=== PATIENT | female | born 1975 | race Caucasian/White ===

== ENCOUNTER 2018-10-11 10:48 | Observation (INO) ==
[2018-10-11] MEDS ORDERED: Ondansetron 4 MG/2 ML VIAL IVP ONE (11:17)
[2018-10-11] MEDS ORDERED: 0.9 % Sodium Chloride 1,000 ML IVC ONE (11:17)
[2018-10-11] MEDS ORDERED: *HR* HYDROmorphone (PF) 1 MG/ML SYRINGE IVP ONE (11:17)
--- NOTE | 2018-10-11 11:20 | Emergency Department Note ---
Disposition Clinical Impression: Incarcerated femoral hernia Disposition: Admitted As Inpatient Condition: Good Referrals: Juancho Dinero MD [Primary Care Provider] - Time of Disposition: 12:55 General Adult HPI - General Chief complaint: ED Abdominal Pain Stated complaint: Hernia Time Seen by Provider: 10/11/18 10:55 Source: patient, family Mode of arrival: ambulatory Limitations: no limitations Nursing Notes Reviewed: Yes Vital Signs Reviewed: Yes - History of Present Illness HPI Narrative: 43-year-old female patient with a history of fatty liver as well as several hernias inclusive of a hiatal hernia and umbilical hernia presenting to emergency department with a complaint of a one-week history of a left inguinal hernia. She states that it was initially the size of an almond. Is been progressively getting worse. She reports yesterday around 5:30 AM she had significant pain to the area. She is only been able to pass a small amount of liquid stool since. She denies any fevers or chills. She reports that she has been in a significant amount of pain since 5:30 yesterday but she was trying to make it to her primary care doctor today. She was told that they were close today so she came to the emergency department. She is never had an incarcerated hernia before. She does have a history of a tubal ligation. - Related Data Home Medications Medication Instructions Recorded Confirmed Esomeprazole Magnesium [Nexium] 40 mg PO DAILY PRN 02/12/18 02/12/18 Fenofibrate 40 mg PO DAILY 02/12/18 02/12/18 Ibuprofen [Advil] 200 mg PO Q6H PRN 02/12/18 02/12/18 Previous Rx's Medication Instructions Recorded Acetaminophen [Tylenol] 1,000 mg PO Q6HR PRN #90 tablet 02/12/18 Allergies Allergy/AdvReac Type Severity Reaction Status Date / Time Amoxicillin Allergy Rash Verified 10/11/18 11:16 fluticasone [From Flonase] Allergy Swelling Verified 10/11/18 11:16 of Lip/Tongue/Throat hydromorphone [From Dilaudid] AdvReac Gastrointestinal Verified 10/11/18 11:16 Upset All systems ED: reviewed and negative except as stated. Review of Systems: As Per HPI Constitutional: Denies: fever, chills Cardiovascular: Denies: chest pain, syncope Respiratory: Denies: cough, dyspnea Gastrointestinal: Reports: nausea, other (Has not passed gas today. Had a small liquid stool yesterday. Reporting left inguinal pain. Started a week ago got significantly worse 5:30 AM yesterday morning.). Denies: abdominal pain, vomiting Genitourinary: Denies: urgency, dysuria, frequency Integumentary: Denies: rash Past Medical History - Past Medical History Attestation: Yes The following information was validated with the patient. Source: patient Medical history: Reports: hyperlipidemia, other Surgical history: Reports: breast surgery, , cholecystectomy, other Psychiatric history: Reports: no psych history - Social History Smoking Status: Never smoker Smokeless Tobacco Status: No Alcohol use: Reports: none Drug use: Reports: none Physical Exam - General Limitations: no limitations General appearance: alert, in distress (Appears in pain.) - Head Head exam: atraumatic, normocephalic, normal inspection - Eye Eye exam: Present: normal appearance, PERRL, EOMI - ENT ENT exam: normal exam, normal oropharynx, mucous membranes moist - Neck Neck exam: Present: normal inspection, full ROM, trachea midline - Chest Chest inspection: Present: normal inspection, symmetric chest wall rise - Respiratory Respiratory exam: Present: normal lung sounds bilaterally. Absent: respiratory distress, accessory muscle use - Cardiovascular Cardiovascular exam: Present: regular rate, normal rhythm, normal heart sounds - Abdominal Exam Abdominal exam: Present: soft, hernia (Concern for a left inguinal hernia. Patient has a hard mass to the left inguinal area. Exquisitely tender to light palpation.). Absent: organomegaly, Winston's sign, tenderness at McBurney's Point - Extremities Exam Extremities exam: Present: normal inspection, full ROM, normal capillary refill. Absent: tenderness, pedal edema - Neurological Exam Neurological exam: Present: alert, oriented X3 - Psychiatric Psychiatric exam: Present: normal affect, normal mood - Skin Skin exam: Present: warm, dry, intact, normal color Course Course Narrative: Female patient with a history of several hernias presenting with pain to her left inguinal area. Started a week ago. Exquisitely worse yesterday morning around 5:30. Has had one episode of liquid stool yesterday. Has not passed gas today. No stools today. Reports nausea associated with the pain. Has never had an inguinal hernia before. She denies any fevers or chills. Patient does have pain to palpation of her left inguinal area. We did get a ultrasound at bedside to evaluate the area. Hypoechoic structure. No blood flow to this area. There is some mild swelling to the left inguinal area that is hard to p alpation. It is nonpulsatile. We did provide ice to this area and have the patient in the supine position. She denies any trouble urinating. She denies any vaginal discharge. She denies the chance of being she states she had tubal 8 years ago. We will get basic labs and a CT of patient's abdomen. We did discuss the patient with Dr. armstrong who is on-call for surgery for possible incarcerated hernia. - Reevaluation(s) Reevaluation #1: I was unable to reduce the hernia. Patient does have exquisite tenderness. We did provide patient with pain medication and anti-emetics. Dr. armstrong will be admitting the patient to his service and has added her on for surgery today. - Consultations Consultation #1: Dr. armstrong came down to bedside and also could not reduce the patient's femoral hernia. He will be admitting the patient and taking her to surgery today. Patient is consented. Time: 12:53 Consultation #2: I contacted [facility] to discuss the patient and the read of the CT. Our concern was that this was likely a femoral hernia. However in the read there is a concern for possible hemorrhagic foci to this area. On bedside u ltrasound did not show blood flow however he is requesting that a formal ultrasound be completed to rule out active hemorrhage versus lymphadenopathy. He does believe that the surgeon should be involved in the case at this time. We did discuss that there is a surgeon on at this time for this. We will obtain a formal ultrasound. We have also repeat Dr. armstrong and are attempting to contact him to discuss the read. Time: 13:42 Consultation #3: I discussed the CT findings with Dr. armstrong. He states that he visualized the CT as well. He does not wish to have the ultrasound performed at this time. We will cancel that. Time: 14:15 Vital Signs Temperature 98.0 F 10/11/18 10:51 Pulse Rate 80 10/11/18 10:51 Respiratory Rate 18 10/11/18 10:51 Blood Pressure 134/85 10/11/18 10:51 O2 Sat by Pulse Oximetry 98 10/11/18 10:51 Temperature 98.0 F 10/11/18 11:40 Pulse Rate 67 10/11/18 13:24 Respiratory Rate 20 10/11/18 13:24 Blood Pressure 120/90 10/11/18 13:24 O2 Sat by Pulse Oximetry 96 10/11/18 13:24 Oxygen Delivery Oxygen Delivery Room Air Medical Decision Making - Medical Records Medical records reviewed: Yes I reviewed the patient's medical records. - Lab Data Lab results reviewed: Yes I reviewed the patient's lab results. Result diagrams: 10/11/18 11:30 10/11/18 11:30 Lab Results 10/11/18 10/11/18 10/11/18 Range/Units 11:30 11:30 11:30 WBC 6.1 (4.3-11.1) K/mcL RBC 4.73 (3.82-4.97) M/mcL Hgb 14.2 (11.5-15.4) g/dL Hct 42.1 (35.3-44.9) % MCV 89.0 (83.0-100.0) fL MCH 30.0 (28.0-33.3) pg MCHC 33.7 (31.6-35.5) g/dL RDW 11.6 (11.5-14.5) % Plt Count 252 (140-400) K/mcL MPV 8.7 L (9.4-12.4) fL Immature Gran % 0.3 (0-4) % Seg Neutrophils % 62.7 % Lymphocytes % 27.5 % Monocytes % 7.7 % Eosinophils % 1.3 % Basophils % 0.5 % Neutrophils # 3.8 (1.6-8.9) K/mcL Lymphocytes # 1.7 (0.6-4.6) K/mcL Monocytes # 0.5 (0.0-1.3) K/mcL Eosinophils # 0.1 (0.0-0.6) K/mcL Basophils # 0.0 (0.0-0.2) K/mcL PT 10.8 (9.4-12.1) Seconds INR 1.0 Sodium 137 (136-145) mEq/L Potassium 3.7 (3.5-5.1) mEq/L Chloride 103 (98-107) mEq/L Carbon Dioxide 26 (23-29) mEq/L BUN 12 (6-20) mg/dL Creatinine 0.59 L (0.60-1.20) mg/dL Est GFR ( Amer) > 60 (> 60) Est GFR (Non-Af Amer) > 60 (> 60) BUN/Creatinine Ratio 20 (6-26) Glucose 107 H (70-105) mg/dL Calculated Osmolality 284 (280-300) Lactic Acid (0.5-2.2) mmol/L Calcium 9.8 (8.6-10.3) mg/dL Total Bilirubin 0.5 (0.3-1.0) mg/dL Direct Bilirubin 0.1 (0.0-0.2) mg/dL Indirect Bilirubin 0.4 (0.0-1.2) mg/dL AST 50 H (13-39) Units/L ALT 89 H (7-52) Units/L Alkaline Phosphatase 84 (34-104) Units/L Serum Total Protein 7.1 (6.4-8.9) g/dL Albumin 4.6 (3.5-5.7) g/dL Globulin 2.5 (2.4-3.5) g/dL Albumin/Globulin Ratio 1.8 (1.1-2.2) Lipase 37 (11-82) Units/L Urine Color (Yellow) Urine Clarity (Clear) Urine pH (5.0-8.0) pH Units Ur Specific [place] (1.010-1.025) Urine Protein (Neg-Trace) mg/dL Urine Glucose (UA) (Normal) mg/dL Urine Ketones (Negative) mg/dL Urine Blood (Negative) Urine Nitrite (Negative) Urine Bilirubin (Negative) Urine Urobilinogen (Normal) mg/dL Ur Leukocyte Esterase (Negative) Urine Microscopic RBC (0-3) per hpf Urine Microscopic WBC (0-3) per hpf Ur Squamous Epith Cells (None-Few) per lpf Urine Bacteria (None-Few) per hpf Hyaline Casts (None-Few) per lpf Ur Culture Indicated? (NO) 10/11/18 10/11/18 Range/Units 11:30 13:35 WBC (4.3-11.1) K/mcL RBC (3.82-4.97) M/mcL Hgb (11.5-15.4) g/dL Hct (35.3-44.9) % MCV (83.0-100.0) fL MCH (28.0-33.3) pg MCHC (31.6-35.5) g/dL RDW (11.5-14.5) % Plt Count (140-400) K/mcL MPV (9.4-12.4) fL Immature Gran % (0-4) % Seg Neutrophils % % Lymphocytes % % Monocytes % % Eosinophils % % Basophils % % Neutrophils # (1.6-8.9) K/mcL Lymphocytes # (0.6-4.6) K/mcL Monocytes # (0.0-1.3) K/mcL Eosinophils # (0.0-0.6) K/mcL Basophils # (0.0-0.2) K/mcL PT (9.4-12.1) Seconds INR Sodium (136-145) mEq/L Potassium (3.5-5.1) mEq/L Chloride (98-107) mEq/L Carbon Dioxide (23-29) mEq/L BUN (6-20) mg/dL Creatinine (0.60-1.20) mg/dL Est GFR ( Amer) (> 60) Est GFR (Non-Af Amer) (> 60) BUN/Creatinine Ratio (6-26) Glucose (70-105) mg/dL Calculated Osmolality (280-300) Lactic Acid 1.3 (0.5-2.2) mmol/L Calcium (8.6-10.3) mg/dL Total Bilirubin (0.3-1.0) mg/dL Direct Bilirubin (0.0-0.2) mg/dL Indirect Bilirubin (0.0-1.2) mg/dL AST (13-39) Units/L ALT (7-52) Units/L Alkaline Phosphatase (34-104) Units/L Serum Total Protein (6.4-8.9) g/dL Albumin (3.5-5.7) g/dL Globulin (2.4-3.5) g/dL Albumin/Globulin Ratio (1.1-2.2) Lipase (11-82) Units/L Urine Color Yellow (Yellow) Urine Clarity Clear (Clear) Urine pH 6.0 (5.0-8.0) pH Units Ur Specific [place] > 1.030 H (1.010-1.025) Urine Protein Negative (Neg-Trace) mg/dL Urine Glucose (UA) Normal (Normal) mg/dL Urine Ketones Negative (Negative) mg/dL Urine Blood Small H (Negative) Urine Nitrite Negative (Negative) Urine Bilirubin Negative (Negative) Urine Urobilinogen Normal (Normal) mg/dL Ur Leukocyte Esterase Negative (Negative) Urine Microscopic RBC 3-5 H (0-3) per hpf Urine Microscopic WBC 0-3 (0-3) per hpf Ur Squamous Epith Cells Many H (None-Few) per lpf Urine Bacteria None Seen (None-Few) per hpf Hyaline Casts None Seen (None-Few) per lpf Ur Culture Indicated? NO (NO) - Radiology Data Radiology results reviewed: Yes I reviewed the patient's radiology results. Abdomen/Pelvis CT 10/11/18 11:25 IMPRESSION: 1. Left inguinal hyperdense mass which may represent left inguinal hemorrhage. Alternatively this may represent an area of adenopathy. This does not have the appearance of inguinal hernia. 2. Calcified uterine fibroids. 3. Incidental right adnexal cyst measures 2.6 cm. 4. Fatty infiltration of the liver. Findings discussed with Sara Fu 1 10/11/2018 at 1:30 p.m. D/ / 10/11/2018 13:45:59 Sherry Chauhan MD / amber Interpreting Provider: Sherry Chauhan MD
[2018-10-11] MEDS ORDERED: Isovue-370 500 ML BOTTLE IVP ONE (11:25)
[2018-10-11 11:56] LABS: Basophils % 0.5 %; Eosinophils # 0.1 K/mcL (0.0-0.6); Eosinophils % 1.3 %; Hematocrit 42.1 % (35.3-44.9); Hemoglobin 14.2 g/dL (11.5-15.4); Immature Granulocytes % 0.3 % (0-4); Lymphocytes # 1.7 K/mcL (0.6-4.6); Lymphocytes % 27.5 %; Mean Corpuscular HGB Conc 33.7 g/dL (31.6-35.5); Mean Platelet Volume 8.7 fL (9.4-12.4); Monocytes # 0.5 K/mcL (0.0-1.3); Monocytes % 7.7 %; Neutrophils # 3.8 K/mcL (1.6-8.9); Platelet Count 252 K/mcL (140-400); Red Blood Count 4.73 M/mcL (3.82-4.97); Red Cell Distribution Width 11.6 % (11.5-14.5); Segmented Neutrophils % 62.7 %
[2018-10-11 12:07] LABS: Prothrombin Time 10.8 Seconds (9.4-12.1)
[2018-10-11 12:10] LABS: Alanine Aminotransferase 89 Units/L (7-52); Albumin 4.6 g/dL (3.5-5.7); Albumin/Globulin Ratio 1.8 (1.1-2.2); Alkaline Phosphatase 84 Units/L (34-104); Aspartate Amino Transferase 50 Units/L (13-39); BUN/Creatinine Ratio 20 (6-26); Bilirubin,Direct 0.1 mg/dL (0.0-0.2); Bilirubin,Indirect 0.4 mg/dL (0.0-1.2); Bilirubin,Total 0.5 mg/dL (0.3-1.0); Blood Urea Nitrogen 12 mg/dL (6-20); Calcium 9.8 mg/dL (8.6-10.3); Carbon Dioxide 26 mEq/L (23-29); Chloride 103 mEq/L (98-107); Globulin 2.5 g/dL (2.4-3.5); Glucose 107 mg/dL (70-105); Lipase 37 Units/L (11-82); Osmolality,Calculated 284 (280-300); Potassium 3.7 mEq/L (3.5-5.1); Sodium 137 mEq/L (136-145); Total Protein 7.1 g/dL (6.4-8.9); eGFR For Non-African Americans > 60 (> 60)
[2018-10-11] MEDS ORDERED: *HR* FentaNYL (PF) 100 MCG/2 ML VIAL IVP ONE (12:40)
--- NOTE | 2018-10-11 12:57 | Emergency Department Note ---
Disposition Clinical Impression: Incarcerated femoral hernia Disposition: Admitted As Inpatient Forms: ED Satisfaction Letter, Work/School Release Abdominal Pain HPI - General Chief Complaint: ED Abdominal Pain Stated Complaint: Hernia-left inguinal Time Seen by Provider: 10/11/18 10:55 Source: patient, family Mode of arrival: ambulatory - History of Present Illness Pain Scale: 7 - Related Data Home Medications Medication Instructions Recorded Confirmed Esomeprazole Magnesium [Nexium] 40 mg PO DAILY PRN 02/12/18 02/12/18 Fenofibrate 40 mg PO DAILY 02/12/18 02/12/18 Ibuprofen [Advil] 200 mg PO Q6H PRN 02/12/18 02/12/18 Previous Rx's Medication Instructions Recorded Acetaminophen [Tylenol] 1,000 mg PO Q6HR PRN #90 tablet 02/12/18 Allergies Allergy/AdvReac Type Severity Reaction Status Date / Time Amoxicillin Allergy Rash Verified 10/11/18 11:16 fluticasone [From Flonase] Allergy Swelling Verified 10/11/18 11:16 of Lip/Tongue/Throat hydromorphone [From Dilaudid] AdvReac Gastrointestinal Verified 10/11/18 11:16 Upset Constitutional: Denies: fever, chills Cardiovascular: Denies: chest pain, syncope Respiratory: Denies: cough, dyspnea Gastrointestinal: Reports: nausea, other (Has not passed gas today. Had a small liquid stool yesterday. Reporting left inguinal pain. Started a week ago got significantly worse 5:30 AM yesterday morning.). Denies: abdominal pain, vomiting Genitourinary: Denies: urgency, dysuria, frequency Integumentary: Denies: rash Abdominal Pain PMH - Past Medical History Medical history: Reports: hyperlipidemia, other Female Surgical History: Reports: Tonsillectomy Psychiatric history: Reports: no psych history - Social History Smoking status: Never smoker Alcohol use: Reports: none Drug use: Reports: none Physical Exam - General Limitations: no limitations General appearance: alert, in distress (Appears in pain.) Course Vital Signs Temperature 98.0 F 10/11/18 10:51 Pulse Rate 80 10/11/18 10:51 Respiratory Rate 18 10/11/18 10:51 Blood Pressure 134/85 10/11/18 10:51 O2 Sat by Pulse Oximetry 98 10/11/18 10:51 Temperature 98.0 F 10/11/18 11:40 Pulse Rate 71 10/11/18 11:40 Respiratory Rate 20 10/11/18 11:40 Blood Pressure 129/92 10/11/18 11:40 O2 Sat by Pulse Oximetry 96 10/11/18 11:40 Oxygen Delivery Oxygen Delivery Room Air Abdominal Pain - Lab Data Result diagrams: 10/11/18 11:30 10/11/18 11:30 Lab Results 10/11/18 10/11/18 10/11/18 Range/Units 11:30 11:30 11:30 WBC 6.1 (4.3-11.1) K/mcL RBC 4.73 (3.82-4.97) M/mcL Hgb 14.2 (11.5-15.4) g/dL Hct 42.1 (35.3-44.9) % MCV 89.0 (83.0-100.0) fL MCH 30.0 (28.0-33.3) pg MCHC 33.7 (31.6-35.5) g/dL RDW 11.6 (11.5-14.5) % Plt Count 252 (140-400) K/mcL MPV 8.7 L (9.4-12.4) fL Immature Gran % 0.3 (0-4) % Seg Neutrophils % 62.7 % Lymphocytes % 27.5 % Monocytes % 7.7 % Eosinophils % 1.3 % Basophils % 0.5 % Neutrophils # 3.8 (1.6-8.9) K/mcL Lymphocytes # 1.7 (0.6-4.6) K/mcL Monocytes # 0.5 (0.0-1.3) K/mcL Eosinophils # 0.1 (0.0-0.6) K/mcL Basophils # 0.0 (0.0-0.2) K/mcL PT 10.8 (9.4-12.1) Seconds INR 1.0 Sodium 137 (136-145) mEq/L Potassium 3.7 (3.5-5.1) mEq/L Chloride 103 (98-107) mEq/L Carbon Dioxide 26 (23-29) mEq/L BUN 12 (6-20) mg/dL Creatinine 0.59 L (0.60-1.20) mg/dL Est GFR ( Amer) > 60 (> 60) Est GFR (Non-Af Amer) > 60 (> 60) BUN/Creatinine Ratio 20 (6-26) Glucose 107 H (70-105) mg/dL Calculated Osmolality 284 (280-300) Lactic Acid (0.5-2.2) mmol/L Calcium 9.8 (8.6-10.3) mg/dL Total Bilirubin 0.5 (0.3-1.0) mg/dL Direct Bilirubin 0.1 (0.0-0.2) mg/dL Indirect Bilirubin 0.4 (0.0-1.2) mg/dL AST 50 H (13-39) Units/L ALT 89 H (7-52) Units/L Alkaline Phosphatase 84 (34-104) Units/L Serum Total Protein 7.1 (6.4-8.9) g/dL Albumin 4.6 (3.5-5.7) g/dL Globulin 2.5 (2.4-3.5) g/dL Albumin/Globulin Ratio 1.8 (1.1-2.2) Lipase 37 (11-82) Units/L 10/11/18 Range/Units 11:30 WBC (4.3-11.1) K/mcL RBC (3.82-4.97) M/mcL Hgb (11.5-15.4) g/dL Hct (35.3-44.9) % MCV (83.0-100.0) fL MCH (28.0-33.3) pg MCHC (31.6-35.5) g/dL RDW (11.5-14.5) % Plt Count (140-400) K/mcL MPV (9.4-12.4) fL Immature Gran % (0-4) % Seg Neutrophils % % Lymphocytes % % Monocytes % % Eosinophils % % Basophils % % Neutrophils # (1.6-8.9) K/mcL Lymphocytes # (0.6-4.6) K/mcL Monocytes # (0.0-1.3) K/mcL Eosinophils # (0.0-0.6) K/mcL Basophils # (0.0-0.2) K/mcL PT (9.4-12.1) Seconds INR Sodium (136-145) mEq/L Potassium (3.5-5.1) mEq/L Chloride (98-107) mEq/L Carbon Dioxide (23-29) mEq/L BUN (6-20) mg/dL Creatinine (0.60-1.20) mg/dL Est GFR ( Amer) (> 60) Est GFR (Non-Af Amer) (> 60) BUN/Creatinine Ratio (6-26) Glucose (70-105) mg/dL Calculated Osmolality (280-300) Lactic Acid 1.3 (0.5-2.2) mmol/L Calcium (8.6-10.3) mg/dL Total Bilirubin (0.3-1.0) mg/dL Direct Bilirubin (0.0-0.2) mg/dL Indirect Bilirubin (0.0-1.2) mg/dL AST (13-39) Units/L ALT (7-52) Units/L Alkaline Phosphatase (34-104) Units/L Serum Total Protein (6.4-8.9) g/dL Albumin (3.5-5.7) g/dL Globulin (2.4-3.5) g/dL Albumin/Globulin Ratio (1.1-2.2) Lipase (11-82) Units/L Critical Care Time Critical Care Time: No Attestation Statement - Attestation Attestation: I examined this patient and my medical decision-making was reviewed with the Resident Physician. I agree with the documented findings, disposition and treatment plan as described except to the extent set forth below. 43-year-old female in presented to the emergency room for left femoral pain. She states this started about a week ago when she had some fullness in this area that she states was the size of an almond. The pain and swelling gradually got worse up until 5:30 in the AM today. She was concerned about a possible hernia. She called her primary physician is unable to get in. She on exam has extreme tenderness to the left femoral area. Concerns for possible incarcerated femoral hernia. She has good pulses in the femoral region. There is no significant redness but there is some mild erythema to the skin. We did place a bedside ultrasound on this region. Were concerns for possible lymphadenitis versus this hernia. Her labs are stable. She is afebrile at this time. She has had no vomiting today. She did have a bowel mov ement 2 days ago. We consulted with general surgery, Dr. armstrong. He came to the emergency room to evaluate the patient. He did a signing consent form to take her to the operating room today. Pain control with fentanyl at this time. She did not prefer the Dilaudid as it caused some abdominal dis comfort. We did order a CT scan. Those results are pending at this time.
[2018-10-11 13:47] LABS: Bilirubin,Urine Negative (Negative); Blood,Urine Small (Negative); Clarity,Urine Clear (Clear); Color,Urine Yellow (Yellow); Glucose,Urine (UA) Normal (Normal); Ketones,Urine Negative (Negative); Leukocyte Esterase,Urine Negative (Negative); Nitrite,Urine Negative (Negative); Protein,Urine Negative (Neg-Trace); Specific Gravity,Urine > 1.030 (1.010-1.025); Urobilinogen,Urine Normal (Normal)
[2018-10-11 13:49] LABS: Bacteria,Urine None Seen per hpf (None-Few); Hyaline Casts,Urine None Seen per lpf (None-Few); Squamous Epithelial Cell,Urine Many per lpf (None-Few); WBC,Urine 0-3 per hpf (0-3)
[2018-10-11] MEDS ORDERED: *HR* OxyCODONE Immed Rel 5 MG TABLET PO PRN ×2 (13:49→20:27)
[2018-10-11] MEDS ORDERED: Ringers Solution, Lactated 1,000 ML IVC SCH ×2 (14:00→20:27)
--- NOTE | 2018-10-11 14:04 | General Surg History&Physical ---
Date of Encounter: 10/11/18 Time of Encounter: 13:52 History of Present Illness Chief complaint: Painful mass left groin HPI: Ms. Issa is a 43 year old female for surgical services for further evaluation of a painful mass left groin. Patient indicates the mass has been present for the past 7 days but in the last 24-48 hours has become larger and significantly more painful. No fevers, chills, nausea, or vomiting. No bowel movements in the last 48 hours. Findings are consistent with an incarcerated left femoral hernia. My presentation to the emergency department, the patient was lying in her hospital bed in some distress related to the painful mass left groin. The mass was manipulated in an effort to reduce the incarcerated hernia. This was unsuccessful. The patient will require surgical intervention and repair with mesh. Past medical history: Hyperlipidemia Surgical history: Tonsillectomy, 3; uterine suspension with mesh; saphenous vein stripping/phlebectomy Allergies: Amoxicillin and Flonase Dilaudid causes abdominal pain Medications: Tylenol and Zantac Social history: G3, P3; lives at home with her and children; she has never smoked, she does not consume alcohol or use illicit drugs. The patient is employed in occupational therapy. Family history: Noncontributory Physical examination: Age-appropriate, woman in some distress related to a painful mass left groin. She is 1.73 m tall, 76.748 kg, BMI 25.7 The patient is afebrile, 98.0; pulse 67-71, respirations 20, blood pressure 129/92- 120/90. SPO2 96% Skin: Warm without obvious jaundice Lungs: Clear bilaterally, no obvious wheezes or rales. No abdominal pain with deep inspiration Cardiac: Regular rate, no appreciable murmurs Abdomen: Soft, nontender. No peritoneal signs. Hypoactive bowel sounds. No discernible intra-abdominal masses. Painful mass left femoral region consistent with a incarcerated femoral hernia. Not reducible. No overlying skin changes. Extremities: No obvious clubbing, cyanosis, or edema. Labs: WBC 6.1, hemoglobin 14.2, hematocrit 42.1. Platelet count 252,000; differential within normal limits Sodium 137, potassium 3.7, chloride 103, bicarbonate 26, BUN 12, creatinine 0.59 CT abdomen/pelvis - diffuse hepatic fatty infiltration; uterus containing fibroids/degenerative fibroid measuring 2.7 cm as described; Minimal fat-containing periumbilical hernia; 4 x 3 cm hyperdensity in the region of the left groin consistent with the painful femoral mass identified On physical examination. Impression: 43-year-old female referred to surgical services for further evaluation and treatment of a painful mass left groin. Clinical exam consistent with an incarcerated femoral hernia. Plan: Left femoral exploration, repair of incarcerated femoral hernia with mesh. This is been discussed in detail with the patient. The use of mesh was also discussed. Risks include hemorrhage, infection, recurrent hernia Injury to adjacent structures including bowel and/or bladder. The use of mesh may result in chronic pain as well as central risk for erosion into Adjacent structures. The patient and her have expressed understanding. Surgical consent has been obtained. Past Med Surg Social Fam HX - Past Medical History Medical history: hyperlipidemia, other Additional medical history: hiatal hernia. umbilical hernia. left inguinal hernia Psychiatric history: no psych history - Past Surgical History Surgical History: breast surgery, , cholecystectomy, other Additional surgical history: fibroids. left knee x2 - Social History Smoking Status: Never smoker Smokeless Tobacco Status: No Alcohol use: none Drug use: none Medications and Allergies Acetaminophen [Tylenol] 1,000 mg PO Q6HR PRN #90 tablet 02/12/18 [Rx] Esomeprazole Magnesium [Nexium] 40 mg PO DAILY PRN 02/12/18 [History] Fenofibrate 40 mg PO DAILY 02/12/18 [History] Ibuprofen [Advil] 200 mg PO Q6H PRN 02/12/18 [History] 3 Allergy/AdvReac Type Severity Reaction Status Date / Time Amoxicillin Allergy Rash Verified 10/11/18 11:16 fluticasone [From Flonase] Allergy Swelling Verified 10/11/18 11:16 of Lip/Tongue/Throat hydromorphone [From Dilaudid] AdvReac Gastrointestinal Verified 10/11/18 11:16 Upset Review of Systems All systems PM: The remainder of the systems were reviewed and are negative General Surgery Exam Initial Vital Signs Temp Pulse Resp BP Pulse Ox 98.0 F 80 18 134/85 98 10/11/18 10:51 10/11/18 10:51 10/11/18 10:51 10/11/18 10:51 10/11/18 10:51 Results - Labs 10/11/18 11:30 10/11/18 11:30 Abnormal lab results MPV 8.7 fL (9.4-12.4) L 10/11/18 11:30 Creatinine 0.59 mg/dL (0.60-1.20) L 10/11/18 11:30 Glucose 107 mg/dL (70-105) H 10/11/18 11:30 AST 50 Units/L (13-39) H 10/11/18 11:30 ALT 89 Units/L (7-52) H 10/11/18 11:30 Ur Specific Bulan > 1.030 (1.010-1.025) H 10/11/18 13:35 Urine Blood Small (Negative) H 10/11/18 13:35 Urine Microscopic RBC 3-5 per hpf (0-3) H 10/11/18 13:35 Ur Squamous Epith Cells Many per lpf (None-Few) H 10/11/18 13:35 Diabetes panel 10/11/18 Range/Units 11:30 Sodium 137 (136-145) mEq/L Potassium 3.7 (3.5-5.1) mEq/L Chloride 103 (98-107) mEq/L Carbon Dioxide 26 (23-29) mEq/L BUN 12 (6-20) mg/dL Creatinine 0.59 L (0.60-1.20) mg/dL Glucose 107 H (70-105) mg/dL Calcium 9.8 (8.6-10.3) mg/dL AST 50 H (13-39) Units/L ALT 89 H (7-52) Units/L Alkaline Phosphatase 84 (34-104) Units/L Albumin 4.6 (3.5-5.7) g/dL Calcium panel 10/11/18 Range/Units 11:30 Calcium 9.8 (8.6-10.3) mg/dL Albumin 4.6 (3.5-5.7) g/dL Pituitary panel 10/11/18 Range/Units 11:30 Sodium 137 (136-145) mEq/L Potassium 3.7 (3.5-5.1) mEq/L Chloride 103 (98-107) mEq/L Carbon Dioxide 26 (23-29) mEq/L BUN 12 (6-20) mg/dL Creatinine 0.59 L (0.60-1.20) mg/dL Glucose 107 H (70-105) mg/dL Calcium 9.8 (8.6-10.3) mg/dL Adrenal panel 10/11/18 Range/Units 11:30 Sodium 137 (136-145) mEq/L Potassium 3.7 (3.5-5.1) mEq/L Chloride 103 (98-107) mEq/L Carbon Dioxide 26 (23-29) mEq/L BUN 12 (6-20) mg/dL Creatinine 0.59 L (0.60-1.20) mg/dL Glucose 107 H (70-105) mg/dL Calcium 9.8 (8.6-10.3) mg/dL Total Bilirubin 0.5 (0.3-1.0) mg/dL AST 50 H (13-39) Units/L ALT 89 H (7-52) Units/L Alkaline Phosphatase 84 (34-104) Units/L Albumin 4.6 (3.5-5.7) g/dL All other labs normal.
--- NOTE | 2018-10-11 18:09 | Anesthesia Evaluation PreOp ---
Date of Encounter: 10/11/18 Time of Encounter: 18:03 - Past History Planned Operation: L-incarcerated herniar repair w/mesh Cardiac History: Hyperlipidemia Pulmonary History: Denies Any Significant HX ADOLESCENT SPECIALIST History: Denies Any Significant HX Other Medical History: Hepatic (newly dx Fatty Liver of unknown etiology) Anesthesia History: No Prior Anesthetic Complications, Past Anesthesia (T&A, C- section x 3, Uterine suspension w/mesh, vein stripping) Alcohol Use: none Drug use: none Medications and Allergies Acetaminophen [Tylenol] 1,000 mg PO Q6HR PRN #90 tablet 02/12/18 [Rx] Esomeprazole Magnesium [Nexium] 40 mg PO DAILY PRN 02/12/18 [History] Fenofibrate 40 mg PO DAILY 02/12/18 [History] Ibuprofen [Advil] 200 mg PO Q6H PRN 02/12/18 [History] Allergy/AdvReac Type Severity Reaction Status Date / Time Amoxicillin Allergy Rash Verified 10/11/18 11:16 fluticasone [From Flonase] Allergy Swelling Verified 10/11/18 11:16 of Lip/Tongue/Throat hydromorphone [From Dilaudid] AdvReac Gastrointestinal Verified 10/11/18 11:16 Upset - Meds/Allergy Pre-op Review Medications Reviewed: Yes Allergies Reviewed: Yes Beta Blockers on Current Med List: No Anesthesia Results - Labs 10/11/18 11:30 10/11/18 11:30 Laboratory Results Impressions Abdomen/Pelvis CT 10/11/18 11:25 IMPRESSION: 1. Left inguinal hyperdense mass which may represent left inguinal hemorrhage. Alternatively this may represent an area of adenopathy. This does not have the appearance of inguinal hernia. 2. Calcified uterine fibroids. 3. Incidental right adnexal cyst measures 2.6 cm. 4. Fatty infiltration of the liver. Findings discussed with Sara Fu 1 10/11/2018 at 1:30 p.m. D/ / 10/11/2018 13:45:59 Sherry Chauhan MD / [email or web address] Interpreting Provider: Sherry Chauhan MD - Imaging EKG: report reviewed (79bpm - Interpretive Statements SINUS RHYTHM WITH SINUS ARRHYTHMIA Electronically Signed On 01-28-2018 13:36:21 EDT by Rudolph Oakley MD) Anesthesia Exam Vital Signs Temp Pulse Resp BP Pulse Ox 10/11/18 14:27 98.3 F 61 16 126/82 97 10/11/18 13:24 67 20 120/90 96 10/11/18 11:40 98.0 F 71 20 129/92 96 10/11/18 11:38 71 20 129/92 96 10/11/18 11:21 97 10/11/18 10:51 98.0 F 80 18 134/85 98 Intake and Output 10/11/18 10/11/18 10/11/18 07:59 15:59 23:59 Intake Total 1000 / 1000 Balance 1000 / 1000 Intake: IV Fluids 1000 / 1000 0.9 % Sodium Chloride 1,000 ML 1000 / 1000 @ 999 mls/hr IVC .Q1H1M ONE Rx# :[id number] Other: Meal NPO DINNER Stool Characteristics Normal for Patient Stool Color Brown Weight 76.748 kg Patient Weight 10/11/18 23:59 Weight 76.748 kg Height: 5'8" Weight: 169# BMI = 26 NPO (# of Hours): 0800 - HEENT Pupil (Motor): Pupils equal, EOMI Mallampati: II Teeth: Normal Oral Opening: Greater than 3 - ADOLESCENT SPECIALIST LOC: Confused ADOLESCENT SPECIALIST Motor: Normal RUE, Normal LUE, Normal RLE, Normal LLE, Normal Face ADOLESCENT SPECIALIST Sensory: Normal: RUE, LUE, RLE, LLE, Face - Cardiac Rhythm: Regular Murmur: None - Pulmonary Breath Sounds: bilateral Clear Respiratory Effort: Symmetrical Anesthesia Assess/Plan ASA Score: 2, E Level of consciousness: Cooperative, Oriented, Tranquil Anesthetic Plan: General Monitoring Plan: Standard Monitors Recovery Plan: PACU Anes Supervising Prov Stmt: Pt seen/evaluated, R&B discussed, questions answered and consent obtained. Jenna Russell MD
[2018-10-11] MEDS ORDERED: *HR* Midazolam HCl 2 MG/2 ML VIAL ONE (18:11)
[2018-10-11] MEDS ORDERED: *HR* Propofol 200 MG/20 ML VIAL IVP ONE (18:11)
[2018-10-11] MEDS ORDERED: *HR* FentaNYL (PF) 100 MCG/2 ML VIAL ONE (18:11)
[2018-10-11] MEDS ORDERED: Lidocaine -MPF 4% 5 ML AMPUL ONE (18:13)
[2018-10-11] MEDS ORDERED: Lidocaine -MPF 2% 2 ML VIAL ONE (18:13)
[2018-10-11] MEDS ORDERED: *HR* Rocuronium Bromide 50 MG/5 ML VIAL ONE (18:13)
[2018-10-11] MEDS ORDERED: KETAMINE HCL 50 MG/ML SYRINGE IV ONE (18:20)
[2018-10-11] MEDS ORDERED: Acetaminophen IV 1,000 MG/100 ML INFUS..BTL ONE (18:20)
[2018-10-11] MEDS ORDERED: Dexamethasone 4 MG/ML VIAL ONE (18:45)
[2018-10-11] MEDS ORDERED: Ondansetron 4 MG/2 ML VIAL ONE (18:45)
[2018-10-11] MEDS ORDERED: Ketorolac 30 MG/ML VIAL ONE (18:46)
[2018-10-11] MEDS ORDERED: Clindamycin 900 MG/50 ML 900 MG/50 ML IV.SOLN IVPB ONE (18:50)
[2018-10-11] MEDS ORDERED: Neostigmine Methylsulfate 3 MG/3 ML SYRINGE ONE (19:18)
--- NOTE | 2018-10-11 19:50 | Event Note ---
Date of Encounter: 10/11/18 Time of Encounter: 18:00 CT abdomen/pelvis reviewed with [facility]. The painful lesion left groin appeared to be an enlarged lymph node with surrounding hematoma/clot rather than a hernia. This was discussed with the patient prior to surgery. Treatment options include medical management versus excision biopsy of this abnormal lymph node. The patient opted to undergo surgery in the hopes of achieving from her persisting groin pain. Exploration of the left groin is planned, excision of the abnormal lymph node and evacuation of the surrounding hematoma to be completed. This should result in relief of the patient's left groin pain as well as submit tissue for pathologic evaluation. If a femoral hernia is identified repair with mesh will be completed.
--- NOTE | 2018-10-11 19:57 | Operative Note ---
Date of procedure: 10/11/18 Pre-op diagnosis: Painful mass left groin Post-op diagnosis: same (Enlarged, necrotic lymph node with hemorrhage and surrounding clot) Procedure: Exploration left groin with debridement enlarged, necrotic lymph node with surrounding hemorrhage/clot Implants: None Complications: None apparent Anesthesia: GETA Local Anesthetics: 0.25% Sensorcaine HCL with Epinephrine 1:200,000 SubQ (cc) (25 mL) Surgeon: Edgardo Borrego Was there an credentialing assistant present: No Estimated blood loss (cc): 20 IV fluids (cc): 900 Specimen: Necrotic lymph node and clot Condition: stable Disposition: PACU Procedure in Detail: Brief history: 43-year-old female referred to surgical services for further evaluation and treatment of a painful left femoral mass. Clinically, the patient appeared to have a incarcerated left femoral hernia. CT abdomen/pelvis demonstrated a hyperdense lesion with surrounding inflammation and stranding consistent with hemorrhage/clot. No hernia was identified. Left femoral exploration was planned. The patient presents to the operating room for that procedure. Technique: The patient was appropriately identified, marked, and stopped in OR holding. The patient was then taken to the operating room where she was placed supine on the procedure table. The patient was again appropriately identified to person, procedure, and laterality. The accuracy of this information was confirmed by the patient and procedure team. Then intubated and anesthetized by [facility]. The abdomen and genitalia were prepped and draped in usual sterile fashion. An oblique skin incision was planned just cephalad to an imaginary line drawn from the anterior superior iliac spine to the pubic tubercle. In was infiltrated with several milliliters of 0.25% bupivacaine with 1-200,000 units epinephrine and then incised. Dissection was extended into the subcutaneous tissue. Bleeding points were controlled with electrocautery. As the dissection proceeded became immediately apparent that this was an enlarged necrotic lymph nodes surrounded by clot. The lymph node was dissected from the surrounding tissues. The vascular pedicle was controlled with clips and/or 3-0 silk suture ligatures. The necrotic lymph node and clot was removed and sent to pathology. Wound was irrigated with warm sterile saline and checked for hemostasis. Additional bleeding points were clipped or suture ligated. The surrounding tissue was infiltrated with several milliliters of 0.25% bupivacaine with epinephrine. The subcutaneous tissue was closed with running 3-0 Vicryl. The skin edges were approximated with subcuticular 4-0 Vicryl. The incision was sealed with Dermabond dermal adhesive. The patient was taken to PACU. Needle, sponge, and instrument counts were correct at the close of the case.
[2018-10-11] MEDS ORDERED: Acetaminophen 325 MG TABLET PO PRN (20:27)
[2018-10-11] MEDS ORDERED: Ondansetron 4 MG/2 ML VIAL IVP PRN (21:22)
[2018-10-11] MEDS ORDERED: *HR* Promethazine 25 MG/ML VIAL IVP PRN (21:24)
[2018-10-12 07:43] LABS: Basophils % 0.2 %; Immature Granulocytes % 0.3 % (0-4); Lymphocytes # 0.8 K/mcL (0.6-4.6); Lymphocytes % 12.8 %; Mean Corpuscular HGB Conc 32.4 g/dL (31.6-35.5); Mean Corpuscular Hemoglobin 29.4 pg (28.0-33.3); Mean Corpuscular Volume 90.7 fL (83.0-100.0); Mean Platelet Volume 9.1 fL (9.4-12.4); Monocytes # 0.2 K/mcL (0.0-1.3); Monocytes % 2.7 %; Platelet Count 242 K/mcL (140-400); Red Blood Count 4.19 M/mcL (3.82-4.97); Red Cell Distribution Width 11.7 % (11.5-14.5)
[2018-10-12 07:46] LABS: Hemoglobin 12.3 g/dL (11.5-15.4)
[2018-10-12 10:24] VITALS: BP 103/58
--- NOTE | 2018-10-12 11:50 | General Surgery Progress Note ---
Date of Encounter: 10/12/18 Time of Encounter: 11:46 Subjective Patient reports: feels better Narrative: General Surgery - POD #1 Patient feeling much improved with resolution of left groin pain. Afebrile, hemodynamically stable, pulse 81 and 95, RR 15; BP 103/58 Lungs: Clear Abdomen: Soft nontender. Left groin incision intact, clean and dry. No significant swelling. Patient is tolerating regular diet, active bowel sounds Laboratories: WBC 6.0, hemoglobin 12.3 with hematocrit 38.0 Impression: Postoperative day #1, status post left inguinal exploration with debridement of large, necrotic left femoral lymph node with surrounding hemorrhage/clot Resolution of preoperative symptoms / severe left groin pain Acceptable postoperative status for discharge home Instructions: Regular diet Activity as tolerated; lifting limited less than 20 pounds Patient may shower, wash incision with soap and water Tylenol, Motrin, Advil, Aleve, etc. as needed for pain Prescription for oxycodone I have milligrams, #4, 1 every 6 hours as needed for pain not relieved by [id number] medication Telephone follow-up, 10/15/18, for path results Office follow-up, 10/18/18 Objective Vital Signs - Last 8 Hours Temp Pulse Resp BP Pulse Ox 10/12/18 10:20 98.8 F 95 15 103/58 95 10/12/18 06:24 98.4 F 81 15 100/61 94 Intake and Output 10/11/18 10/12/18 10/12/18 23:59 07:59 15:59 Intake Total 1220 / 1220 276 / 276 Output Total 0 / 0 400 / 400 Balance -20 / -20 1220 / 1220 -124 / -124 Intake: IV Fluids 1220 / 1220 176 / 176 Lactated Ringers 1,000 ML @ 40 1220 / 1220 176 / 176 mls/hr IVC .Q24H APRIL Rx#: [id number] Oral 0 / 0 100 / 100 Output: Urine 0 / 0 400 / 400 Estimated Blood Loss Other: Meal NPO DINNER # Voids 2 Weight 77.1 kg Patient Weight 10/12/18 23:59 Weight 77.1 kg - Labs 10/12/18 05:30 10/11/18 11:30 Diabetes panel 10/11/18 Range/Units 11:30 Sodium 137 (136-145) mEq/L Potassium 3.7 (3.5-5.1) mEq/L Chloride 103 (98-107) mEq/L Carbon Dioxide 26 (23-29) mEq/L BUN 12 (6-20) mg/dL Creatinine 0.59 L (0.60-1.20) mg/dL Glucose 107 H (70-105) mg/dL Calcium 9.8 (8.6-10.3) mg/dL AST 50 H (13-39) Units/L ALT 89 H (7-52) Units/L Alkaline Phosphatase 84 (34-104) Units/L Albumin 4.6 (3.5-5.7) g/dL Calcium panel 10/11/18 Range/Units 11:30 Calcium 9.8 (8.6-10.3) mg/dL Albumin 4.6 (3.5-5.7) g/dL Pituitary panel 10/11/18 Range/Units 11:30 Sodium 137 (136-145) mEq/L Potassium 3.7 (3.5-5.1) mEq/L Chloride 103 (98-107) mEq/L Carbon Dioxide 26 (23-29) mEq/L BUN 12 (6-20) mg/dL Creatinine 0.59 L (0.60-1.20) mg/dL Glucose 107 H (70-105) mg/dL Calcium 9.8 (8.6-10.3) mg/dL Adrenal panel 10/11/18 Range/Units 11:30 Sodium 137 (136-145) mEq/L Potassium 3.7 (3.5-5.1) mEq/L Chloride 103 (98-107) mEq/L Carbon Dioxide 26 (23-29) mEq/L BUN 12 (6-20) mg/dL Creatinine 0.59 L (0.60-1.20) mg/dL Glucose 107 H (70-105) mg/dL Calcium 9.8 (8.6-10.3) mg/dL Total Bilirubin 0.5 (0.3-1.0) mg/dL AST 50 H (13-39) Units/L ALT 89 H (7-52) Units/L Alkaline Phosphatase 84 (34-104) Units/L Albumin 4.6 (3.5-5.7) g/dL Consult Discharge Plan - Plan Referrals: Juancho Dinero MD [Primary Care Provider] -
--- NOTE | 2018-10-12 11:54 | Discharge Summary ---
Outpatient Proc Discharge Plan - Plan Additional Instructions: Regular diet Activity as tolerated; lifting limited less than 20 pounds Patient may shower, wash incision with soap and water Tylenol, Motrin, Advil, Aleve, etc. as needed for pain Prescription for oxycodone 5 mg, #4, 1 every 6 hours as needed for pain not relieved by [id number] medication Telephone follow-up, 10/15/18, for path results Office follow-up, 10/18/18 Prescriptions: OxyCODONE Immed Rel [Roxicodone 5 MG] 5 mg PO Q6H PRN 1 Days #4 tablet PRN Reason: pain not relieved by Tylenol Home Medications: Acetaminophen [Tylenol] 1,000 mg PO Q6HR PRN #90 tablet 02/12/18 [Rx] Esomeprazole Magnesium [Nexium] 40 mg PO DAILY PRN 02/12/18 [History] Fenofibrate 40 mg PO DAILY 02/12/18 [History] Ibuprofen [Advil] 200 mg PO Q6H PRN 02/12/18 [History] Acetaminophen [Tylenol] 650 mg PO Q6HR PRN tablet 10/12/18 [Rx] OxyCODONE Immed Rel [Roxicodone 5 MG] 5 mg PO Q6H PRN 1 Days #4 tablet 10/12/18 [Rx]
== END 2018-10-12 13:44 | disposition home or self-care (01) ==
LOC: EMEROOARM 10:48 → 3ANU 10:48
PROVIDERS: ADMIT Surgery; ATTEND Surgery